=== PATIENT | female | born 1980 | race Caucasian/White ===

== ENCOUNTER 2018-10-15 15:14 | Emergency (ER) | payer OTHER ==
[2018-10-15 15:24] VITALS: BP 127/77; PULSE 111; TEMP 99.3; BMI 29.2
--- NOTE | 2018-10-15 15:26 | PDOC ---
Rapid Medical Evaluation Chief Complaint: Sore Throat Time Seen by Provider: 10/15/18 15:24 Medical Evaluation: Allergies Allergy/AdvReac Type Severity Reaction Status Date / Time No Known Allergies Allergy Verified 10/15/18 15:23 Vital Signs Temp Pulse Resp BP Pulse Ox 99.3 F 111 H 18 127/77 98 10/15/18 15:19 10/15/18 15:19 10/15/18 15:19 10/15/18 15:19 10/15/18 15:19 10/15/18 15:24 I have performed a brief in-person evaluation of this patient. The patient presents with a chief complaint of: sore throat since yesterday. no fever Pertinent physical exam findings: no throat erythema I have ordered the following: rapid strep The patient will proceed to the ED for further evaluation. Discharge Disposition - Diagnosis Pharyngitis Qualifiers: Pharyngitis/tonsillitis etiology: unspecified etiology Qualified Code(s): J02.9 - Acute pharyngitis, unspecified - Referrals - Patient Instructions - Post Discharge Activity
[2018-10-15] MEDS ORDERED: DEXAMETHASONE LIQUID 0.5 MG/5 ML 240 ML BULK BOTTLE PO STA (15:55)
[2018-10-15] MEDS ORDERED: DEXAMETHASONE SOD PHOSPHATE 10 MG/1 ML VIAL ONE (15:57)
--- NOTE | 2018-10-15 16:05 | PDOC ---
History of Present Illness - General Chief Complaint: Sore Throat Stated Complaint: SORE THROAT Time Seen by Provider: 10/15/18 15:24 History Source: Patient Exam Limitations: No Limitations - History of Present Illness Initial Comments: 10/15/18 15:58 c/o sore throat for one day with vomiting, diff swallowing. Past History - Past Medical History Allergies/Adverse Reactions: Allergies Allergy/AdvReac Type Severity Reaction Status Date / Time No Known Allergies Allergy Verified 10/15/18 15:23 Home Medications: Ambulatory Orders Amoxicillin - [Amoxicillin 500mg Capsule -] 500 mg PO BID #20 capsule 10/15/18 Ibuprofen 800 mg PO TID PRN #20 tablet 10/15/18 COPD: No - Reproductive History (#): 2 Para: 1 - Suicide/Smoking/Psychosocial Hx Smoking Status: Yes Smoking History: Current every day smoker Have you smoked in the past 12 months: Yes Number of Cigarettes Smoked Daily: 6 Information on smoking cessation initiated: No Hx Alcohol Use: No Drug/Substance Use Hx: No Review of Systems - Review of Systems Able to Perform ROS?: Yes Is the patient limited Bahamian proficient: No Constitutional: No: Symptoms Reported HEENTM: Yes: Symptoms Reported *Physical Exam - Vital Signs Last Vital Signs Temp Pulse Resp BP Pulse Ox 99.3 F 111 H 18 127/77 98 10/15/18 15:19 10/15/18 15:19 10/15/18 15:19 10/15/18 15:19 10/15/18 15:19 - Physical Exam General Appearance: Yes: Nourished, Appropriately Dressed HEENT: positive: EOMI, JUDY, Pharyngeal Erythema, Tonsillar Exudate, Tonsillar Erythema (left greater than right, uvula midline, no [employer]ENT[employer]) Neck: positive: Supple, Lymphadenopathy (L) Respiratory/Chest: positive: Lungs Clear, Normal Breath Sounds. negative: Chest Tender Moderate Sedation - Procedure Monitoring Vital Signs: Procedure Monitoring Vital Signs Temperature 99.3 F 10/15/18 15:19 Pulse Rate 111 H 10/15/18 15:19 Respiratory Rate 18 10/15/18 15:19 Blood Pressure 127/77 10/15/18 15:19 O2 Sat by Pulse Oximetry (%) 98 10/15/18 15:19 Medical Decision Making - Medical Decision Making 10/15/18 19:29 cc: sore throat, diff swallowing neg [employer]PRESENT[employer] left side tonsil red, with exudate, posterior pharynx with redness will treat for strep lymphadenopathy left side 10/15/18 19:29 *DC/Admit/Observation/Transfer Diagnosis at time of Disposition: Pharyngitis Qualifiers: Pharyngitis/tonsillitis etiology: unspecified etiology Qualified Code(s): J02.9 - Acute pharyngitis, unspecified - Discharge Dispostion Disposition: HOME Condition at time of disposition: Good - Prescriptions Prescriptions: Amoxicillin - [Amoxicillin 500mg Capsule -] 500 mg PO BID #20 capsule Ibuprofen 800 mg PO TID PRN #20 tablet PRN Reason: Pain - Referrals Referrals: Jorge Soares MD [Staff Physician] - - Patient Instructions Printed Discharge Instructions: DI for Pharyngitis/Tonsillopharyngitis -- Adult Additional Instructions: drink fluids, ice pops, gargle with warm salt water 4-5 times a day take ibuprofen as directed for pain take amoxicillin as directed for 10 days follow with the ENT doctor in 2-3 days if symptoms worsen or continue - Post Discharge Activity Forms/Work/School Notes: Back to Work
== END 2018-10-15 16:13 | disposition home or self-care (01) ==
LOC: JERFT 15:14
DX: J02.9 Acute pharyngitis, unspecified (principal)
CPT/HCPCS: 87070; 99281-25

== ENCOUNTER 2022-10-22 14:16 | Emergency (ER) | payer OTHER ==
[2022-10-22 14:31] VITALS: BP 125/66; PULSE 76; RESP 16; TEMP 97.8; BMI 29.2
[2022-10-22] MEDS ORDERED: LIDOCAINE 5% TOPICAL PATCH TP ONE (14:59)
[2022-10-22] MEDS ORDERED: KETOROLAC TROMETHAMINE 30 MG/1 ML VIAL IM ONE (14:59)
[2022-10-22] MEDS ORDERED: diazePAM 5 MG TABLET PO ONE (14:59)
[2022-10-22] MEDS ORDERED: diazePAM 5 MG TABLET ONE (15:07)
[2022-10-22] MEDS ORDERED: KETOROLAC TROMETHAMINE 30 MG/1 ML VIAL ONE (15:07)
[2022-10-22] MEDS ORDERED: LIDOCAINE 5% TOPICAL PATCH ONE (15:07)
[2022-10-22] MEDS ORDERED: DEXAMETHASONE SOD PHOSPHATE 10 MG/1 ML VIAL IM ONE (18:41)
[2022-10-22] MEDS ORDERED: METHOCARBAMOL 500 MG TABLET PO ONE (18:41)
[2022-10-22] MEDS ORDERED: ACETAMINOPHEN 500 MG TABLET (FP) PO ONE (18:41)
[2022-10-22] MEDS ORDERED: METHOCARBAMOL 500 MG TABLET ONE (18:53)
[2022-10-22] MEDS ORDERED: ACETAMINOPHEN 500 MG TABLET (FP) ONE (18:53)
[2022-10-22] MEDS ORDERED: DEXAMETHASONE SOD PHOSPHATE 10 MG/1 ML VIAL ONE (18:54)
[2022-10-22] MEDS ORDERED: LIDOCAINE PATCH REMOVAL MC SCH (22:00)
== END 2022-10-22 19:32 | disposition home or self-care (01) ==
LOC: JERFT 14:16
PROC: 3E023GC Introduction of Other Therapeutic Substance into Muscle, Percutaneous Approach (ICD-10-PCS; principal; 2022-10-22)
DX: M54.32 Sciatica, left side (principal)
CPT/HCPCS: 72100-TC-FY; 99284-25; J1100

== ENCOUNTER 2022-11-12 04:26 | Day surgery (SDC) | payer OTHER ==
[2022-11-06 16:34] VITALS: BMI 29.2
[2022-11-12] MEDS ORDERED: BUPIVACAINE HCL/PF 0.5% (5MG/ML) 10 ML VIAL ONE (07:09)
[2022-11-12] MEDS ORDERED: LIDOCAINE HCL/PF 1% SDV 5ML VIAL ONE (07:09)
[2022-11-12] MEDS ORDERED: TRIAMCINOLONE ACET 40MG/1ML VIAL ONE (07:34)
[2022-11-12 09:09] VITALS: RESP 20
[2022-11-12] MEDS ORDERED: LIDOCAINE HCL 1% PRESERVATIVE FREE - 30ML VIAL IJ ONE ×2 (10:53→10:54)
[2022-11-12] MEDS ORDERED: TRIAMCINOLONE ACETONIDE 40 MG/ML 10 ML VIAL IJ ONE (10:54)
[2022-11-12] MEDS ORDERED: BUPIVACAINE HCL/PF 0.5% (5MG/ML) 10 ML VIAL IJ ONE (10:55)
[2022-11-12] MEDS ORDERED: IOHEXOL 180 MG/1 ML ML IJ ONE (10:56)
[2022-11-12 12:16] VITALS: BP 110/73; PULSE 88; TEMP 98.1
== END 2022-11-12 11:15 | disposition home or self-care (01) ==
LOC: JASU-SURG 04:26
PROVIDERS: ATTEND Pain Medicine Pain Medicine
PROC: 3E0U3BZ Introduction of Anesthetic Agent into Joints, Percutaneous Approach (ICD-10-PCS; 2022-11-12)
PROC: 3E0U33Z Introduction of Anti-inflammatory into Joints, Percutaneous Approach (ICD-10-PCS; principal; 2022-11-12 10:30)
DX: M53.3 Sacrococcygeal disorders, not elsewhere classified (principal)
CPT/HCPCS: 76000-TC-FY; 81025